=== PATIENT | male | born 1985 | race African-American/Black ===

== ENCOUNTER 2017-01-23 08:54 | Emergency (ER) | payer OTHER ==
[2017-01-23 09:11] VITALS: BMI 37.8
--- NOTE | 2017-01-23 09:58 | PDOC ---
History of Present Illness - General Chief Complaint: Lightheaded Stated Complaint: DIZZINESS, WEAKNESS Time Seen by Provider: 01/23/17 09:38 History Source: Patient - History of Present Illness Timing/Duration: other (this am) Associated Symptoms: denies: chest pain, cough, fever/chills, nausea/vomiting, shortness of breath, weakness Past History - Past Medical History Allergies/Adverse Reactions: Allergies Allergy/AdvReac Type Severity Reaction Status Date / Time No Known Allergies Allergy Verified 01/23/17 09:07 Home Medications: Ambulatory Orders Aripiprazole [Abilify] 20 mg PO DAILY 01/23/17 Psychiatric Problems: Yes (ANXIETY) Thyroid Disease: Yes - Immunization History Immunization Up to Date: Yes - Psycho/Social/Smoking Cessation Hx Suicidal Ideation: No Smoking Status: No Smoking History: Never smoked Have you smoked in the past 12 months: No Number of Cigarettes Smoked Daily: 0 Information on smoking cessation initiated: No Hx Alcohol Use: No Drug/Substance Use Hx: No Review of Systems - Review of Systems Constitutional: No: Chills, Fever Respiratory: No: Shortness of Breath Cardiac (ROS): No: Chest Pain ABD/GI: No: Nausea, Vomiting Neurological: Yes: Dizziness. No: Headache, Numbness, Tingling, Weakness *Physical Exam - Vital Signs Last Vital Signs Temp Pulse Resp BP Pulse Ox 97.3 F L 70 16 130/85 97 01/23/17 09:08 01/23/17 09:08 01/23/17 09:08 01/23/17 09:08 01/23/17 09:08 - Physical Exam General Appearance: Yes: Appropriately Dressed. No: Apparent Distress HEENT: positive: Normal ENT Inspection, Normal Voice. negative: Scleral Icterus (R), Scleral Icterus (L) Neck: positive: Supple Respiratory/Chest: positive: Lungs Clear, Normal Breath Sounds. negative: Respiratory Distress Cardiovascular: positive: Regular Rate, S1, S2 Gastrointestinal/Abdominal: positive: Soft. negative: Tender Extremity: positive: Normal Inspection Integumentary: positive: Dry, Warm Neurologic: positive: Fully Oriented, Alert, Normal Mood/Affect, Other (odd affect) Heart Score/ECG Review - ECG Intrepretation Comment:: 01/23/17 10:49 1st degree AV block @ 64 BPM ED Treatment Course - LABORATORY CBC & Chemistry Diagram: 01/23/17 10:10 01/23/17 10:10 Medical Decision Making - Medical Decision Making 01/23/17 09:55 31 yo M, h/o hyperthyroid on methimazole, bipolar on abilify, presents with dizziness. Patient reports feeling lightheaded whenever he tries to lay down since this a.m. No vertigo, headache, nausea, vomiting, focal weakness, chest pain or shortness of breath. No history of similar episode as per patient See exam Dizziness this am of unclear etiology Stable and well lance w/ unremarkable exam -basic labs -anticipate discharge w/ pmd f/u 01/23/17 09:58 01/23/17 09:58 01/23/17 10:59 EKG and labs unremarkable. Pt asx at this time. Stable for discharge w/ PMD f/u as needed *DC/Admit/Observation/Transfer Diagnosis at time of Disposition: Dizziness - Discharge Dispostion Disposition: HOME Condition at time of disposition: Improved - Patient Instructions Printed Discharge Instructions: Dizziness, Nonvertigo Additional Instructions: Your EKG and labs are all normal. If dizziness recurs, please follow-up with Dr. Amaya
[2017-01-23 10:27] LABS: BASOPHIL 0.7 % (0-2.0); EOSINOPHIL 0.4 % (0-4.5); MCH 27.8 pg (25.7-33.7); MCHC 32.2 g/dl (32.0-35.9); MEAN CELL VOLUME 86.3 fl (80-96); NEUTROPHILS 66.6 % (42.8-82.8); PLATELET COUNT 140 K/MM3 (134-434); RDW 14.3 % (11.9-15.9); WHITE BLOOD COUNT 4.5 K/mm3 (4.0-10.0)
[2017-01-23 10:43] LABS: URINE APPEARANCE CLEAR; URINE BILIRUBIN NEGATIVE (NEGATIVE); URINE BLOOD NEGATIVE (NEGATIVE); URINE COLOR YELLOW; URINE GLUCOSE (UA) NEGATIVE (NEGATIVE); URINE KETONE NEGATIVE (NEGATIVE); URINE LEUK ESTERASE NEGATIVE (NEGATIVE); URINE NITRITE NEGATIVE (NEGATIVE); URINE PROTEIN NEGATIVE (NEGATIVE)
[2017-01-23 10:48] LABS: ALBUMIN 3.4 g/dl (3.4-5.0); ANION GAP 5 (8-16); CALCIUM 8.7 mg/dL (8.5-10.1); CO2 29 mmol/L (21-32); GLUCOSE,RANDOM 113 mg/dL (74-106)
[2017-01-23 10:55] LABS: ALK PHOS 89 U/L (45-117); BILIRUBIN,TOTAL 0.3 mg/dL (0.2-1.0); CPK 266 IU/L (39-308); CREATININE 0.9 mg/dL (0.7-1.3); SGOT/AST 30 U/L (15-37); SGPT/ALT 73 U/L (12-78); TOT PROT 7.3 g/dl (6.4-8.2); TROPONIN I < 0.02 ng/ml (0.00-0.05)
[2017-01-23 11:48] VITALS: BP 123/68; PULSE 72; TEMP 98.2
--- NOTE | 2017-01-23 13:10 | EKG ---
Test Reason : Blood Pressure : / mmHG Vent. Rate : 064 BPM Atrial Rate : 064 BPM P-R Int : 212 ms QRS Dur : 104 ms QT Int : 424 ms P-R-T Axes : 050 009 023 degrees QTc Int : 437 ms SINUS RHYTHM WITH 1ST DEGREE A-V BLOCK POSSIBLE LEFT ATRIAL ENLARGEMENT BORDERLINE ECG WHEN COMPARED WITH ECG OF 10-APR-2000 14:50, PREVIOUS ECG IS PRESENT Confirmed by STEFF MIKE MD ([id number]) on 01/23/2017 1:09:52 PM Referred By: Confirmed By:STEFF MIKE MD
== END 2017-01-23 11:48 | disposition home or self-care (01) ==
LOC: JERFT 08:54 → JER 08:54
DX: R42 Dizziness and giddiness (principal); E05.90 Thyrotoxicosis, unspecified without thyrotoxic crisis or storm; F31.9 Bipolar disorder, unspecified
CPT/HCPCS: 36415; 80053; 81003; 82553; 84443; 84484; 85025; 93005; 93010; 99283-25

== ENCOUNTER 2017-06-07 11:59 | Emergency (ER) | payer OTHER ==
[2017-06-07 12:09] VITALS: TEMP 98.5; BMI 38.7
[2017-06-07 13:28] LABS: URINE APPEARANCE CLEAR; URINE BILIRUBIN NEGATIVE (NEGATIVE); URINE BLOOD NEGATIVE (NEGATIVE); URINE COLOR LTYELLOW; URINE GLUCOSE (UA) NEGATIVE (NEGATIVE); URINE KETONE NEGATIVE (NEGATIVE); URINE LEUK ESTERASE NEGATIVE (NEGATIVE); URINE NITRITE NEGATIVE (NEGATIVE); URINE PROTEIN NEGATIVE (NEGATIVE); URINE UROBILINOGEN NEGATIVE mg/dL (0.2-1.0)
--- NOTE | 2017-06-07 14:02 | PDOC ---
History of Present Illness - General Chief Complaint: Pain Stated Complaint: GENITAL PAIN, LIGHTHEADED Time Seen by Provider: 06/07/17 12:16 History Source: Patient Exam Limitations: No Limitations - History of Present Illness Travel History: No Initial Comments: 06/07/17 14:16 31-year-old male presents to the ED with complaints of bilateral testicular pain worsened with sitting and dysuria for the past week. Patient also states has noted clear drainage from the tip of his penis after urinating and is concerned he may have an STD. Patient states has unprotected sex with one female who is known to have other male partners. Patient denies fever, chills or abdominal pain. Timing/Duration: reports: intermittent Quality: reports: moderate Abdominal Pain Onset Location: reports: other Alleviating Factors: improves with: None Past History - Travel Traveled outside of the country in the last 30 days: No - Past Medical History Allergies/Adverse Reactions: Allergies Allergy/AdvReac Type Severity Reaction Status Date / Time No Known Allergies Allergy Verified 06/07/17 12:09 Home Medications: Ambulatory Orders Aripiprazole [Abilify] 20 mg PO DAILY 01/23/17 COPD: No Psychiatric Problems: Yes (ANXIETY) Thyroid Disease: Yes - Immunization History Immunization Up to Date: Yes - Suicide/Smoking/Psychosocial Hx Smoking Status: No Smoking History: Never smoked Have you smoked in the past 12 months: No Number of Cigarettes Smoked Daily: 0 Hx Alcohol Use: No Drug/Substance Use Hx: No Patient Lives Alone: No Lives with/in: parents Review of Systems - Review of Systems Able to Perform ROS?: Yes Constitutional: No: Symptoms Reported HEENTM: No: Symptoms Reported Respiratory: No: Symptoms reported Cardiac (ROS): No: Symptoms Reported ABD/GI: No: Symptoms Reported : Yes: Dysuria, Discharge, Testicular Pain. No: Frequency, Flank Pain, Hematuria, Urgency Musculoskeletal: No: Symptoms Reported Integumentary: No: Symptoms Reported Neurological: No: Symptoms reported *Physical Exam - Vital Signs Last Vital Signs Temp Pulse Resp BP Pulse Ox 98.5 F 79 18 135/81 99 06/07/17 12:05 06/07/17 12:05 06/07/17 12:05 06/07/17 12:05 06/07/17 12:05 - Physical Exam General Appearance: Yes: Nourished, Appropriately Dressed. No: Apparent Distress HEENT: positive: EOMI, FAVIOLA, TMs Normal, Pharynx Normal Neck: positive: Supple Respiratory/Chest: positive: Lungs Clear, Normal Breath Sounds. negative: Respiratory Distress, Accessory Muscle Use Cardiovascular: positive: Regular Rhythm, Regular Rate. negative: Murmur Gastrointestinal/Abdominal: positive: Soft. negative: Tenderness Male Genitalia: positive: normal genitalia. negative: discharge, testicular tenderness, testicular mass, epididymus tender Musculoskeletal: negative: CVA Tenderness Integumentary: positive: Normal Color, Warm, Moist Neurologic: positive: Normal Mood/Affect, Motor Strength 09/13 ED Treatment Course - RADIOLOGY Radiology Studies Ordered: Category Date Time Status SCROTUM AND CONTENTS US [US] Stat Ultrasound 06/07/17 12:49 Ordered Medical Decision Making - Medical Decision Making 06/07/17 14:38 Patient with complaints of dysuria, testicular pain, and clear discharge from penis intermittently for the past week. Patient also had no reproducible pain or abnormal acute findings. Patient had no discharge upon penile expression. Patient was ordered a GC chlamydia, HIV syphilis and testicular ultrasound. Based on patient's sexual history. patient will be treated for gonorrhea and chlamydia 06/07/17 15:15 Laboratory Tests 06/07/17 13:30 HIV 1&2 Antibody Screen Negative HIV P24 Antigen Negative 06/07/17 15:18 Laboratory Tests 06/07/17 13:15 Urine Ketones Negative Urine Nitrite Negative Ur Leukocyte Esterase Negative Ultrasound shows small right sided hydrocele, otherwise normal testicular sonogram with no evidence of torsion or acute pathology. Patient was treated for gonorrhea and chlamydia and will be discharged home with recommendations to abstain from sexual intercourse and to notify his partner. *DC/Admit/Observation/Transfer Diagnosis at time of Disposition: Dysuria - Discharge Dispostion Disposition: HOME Condition at time of disposition: Good - Referrals - Patient Instructions Printed Discharge Instructions: Facts About Sexually Transmitted Infections Additional Instructions: Please avoid sexual intercourse for one week and notify your partner today's visit. - Post Discharge Activity
[2017-06-07] MEDS ORDERED: AZITHROMYCIN 1 GM PACKET PO ONE (14:16)
[2017-06-07] MEDS ORDERED: AZITHROMYCIN 250 MG TABLET ONE (14:53)
[2017-06-07] MEDS ORDERED: cefTRIAXone SODIUM 1 GM VIAL ONE (14:53)
--- NOTE | 2017-06-07 15:37 | PDOC ---
*Physical Exam - Vital Signs Last Vital Signs Temp Pulse Resp BP Pulse Ox 98.5 F 79 18 135/81 99 06/07/17 12:05 06/07/17 12:05 06/07/17 12:05 06/07/17 12:05 06/07/17 12:05 ED Treatment Course - ADDITIONAL ORDERS Additional order review: Laboratory Results 06/07/17 13:15 Urine Color Ltyellow Urine Appearance Clear Urine pH 8.0 D Ur Specific [place] 1.013 Urine Protein Negative Urine Glucose (UA) Negative Urine Ketones Negative Urine Blood Negative Urine Nitrite Negative Urine Bilirubin Negative Urine Urobilinogen Negative Ur Leukocyte Esterase Negative Medical Decision Making - Medical Decision Making 06/07/17 15:37 Pt seen by the Advanced Practice Provider under my direct supervision Ancillary studies reviewed I agree with plan as outlined by the Advanced Practice Provider *DC/Admit/Observation/Transfer Diagnosis at time of Disposition: Dysuria - Discharge Dispostion Disposition: HOME Condition at time of disposition: Good - Referrals Referrals: Jose F Amaya MD [Primary Care Provider] - - Patient Instructions Printed Discharge Instructions: Facts About Sexually Transmitted Infections Additional Instructions: Please avoid sexual intercourse for one week and notify your partner about today 's visit. - Post Discharge Activity
[2017-06-07 15:54] VITALS: BP 129/97; PULSE 83
== END 2017-06-07 15:54 | disposition home or self-care (01) ==
LOC: JER 11:59
DX: R30.0 Dysuria (principal); N43.2 Other hydrocele
CPT/HCPCS: 36415; 76870-TC; 81003; 86593; 87086; 87389; 87491; 87591; 96372; 99282-25

== ENCOUNTER 2018-11-06 11:13 | Emergency (ER) | payer OTHER ==
[2018-11-06 11:20] VITALS: BP 151/88; PULSE 78; TEMP 97.8; BMI 41.2
[2018-11-06] MEDS ORDERED: CYCLOBENZAPRINE HCL 10 MG TABLET (FP) PO ONE (12:03)
[2018-11-06] MEDS ORDERED: ACETAMINOPHEN 325 MG TABLET (FP) PO ONE (12:03)
[2018-11-06] MEDS ORDERED: ACETAMINOPHEN 325 MG TABLET (FP) ONE (12:07)
[2018-11-06] MEDS ORDERED: CYCLOBENZAPRINE HCL 10 MG TABLET (FP) ONE (12:07)
--- NOTE | 2018-11-06 12:08 | PDOC ---
History of Present Illness - General Chief Complaint: Back Pain Stated Complaint: BACK PAIN Time Seen by Provider: 11/06/18 11:40 History Source: Patient Exam Limitations: No Limitations - History of Present Illness Initial Comments: 11/06/18 12:03 33y M hx of anxiety presents with complaint of lower back pain. Patient states the pain started on Friday when he was moving shopping carts, the pain resolved on Friday however on he was picking up bag of recycling glass and the pain started again. The pain is worse in the lower back and does not radiate to the left or right. The pain is worse when he is sitting improved when he standing or lying flat on his back, there is no associated fever, chills, numbness, tingling, weakness, urinary or bowel incontinence. Patient's is overweight however does not have any frequent back problems. No falls or other injuries The patient took Motrin last night and Aleve this morning without significant relief. Constitutional - no reported Fever, Chills, Abd/GI: no reported abd pain, nausea, vomiting, bowel incontinence : no reported urinary incontinence Musculskelatal -+back pain, no reported joint swelling skin - no reported bruising, erythema, rash neurological: no reported headache, numbness, focal weakness, tingling, ataxia, hematologic: no reported easy bruising, easy bleeding GENERAL: The patient is awake, alert, and fully oriented, Nontoxic - in no acute distress. HEAD: Normocephalic, atraumatic. BACK: Mild tenderness in the lower back approx L4/5 in paraspinal muscles. No induration, erythema, bogginess, rash. EXTREMITIES: Normal range of motion, no edema. NEUROLOGICAL: No facial assymetry, Normal speech, normal gait, symmetric plantar extension/flexion, symmetric sensation in b/l LE PSYCH: Normal mood, normal affect. SKIN: Warm, Dry, normal turgor, Suspect muscle spasm, will treat with Flexeril, Motrin, Tylenol, rest no red flags or clnical signs of cauda equina bee dc with pmd fu return precautions were discussed Past History - Past Medical History Allergies/Adverse Reactions: Allergies Allergy/AdvReac Type Severity Reaction Status Date / Time No Known Allergies Allergy Verified 11/06/18 11:15 Home Medications: Ambulatory Orders Aripiprazole [Abilify] 20 mg PO DAILY 01/23/17 COPD: No Psychiatric Problems: Yes (ANXIETY) Thyroid Disease: Yes - Immunization History Immunization Up to Date: Yes - Suicide/Smoking/Psychosocial Hx Smoking Status: No Smoking History: Never smoked Have you smoked in the past 12 months: No Number of Cigarettes Smoked Daily: 0 Information on smoking cessation initiated: No Hx Alcohol Use: No Drug/Substance Use Hx: No *Physical Exam - Vital Signs Last Vital Signs Temp Pulse Resp BP Pulse Ox 97.8 F 78 18 151/88 98 11/06/18 11:11/06/18 11:17 11/06/18 11:11/06/18 11:11/06/18 11:17 *DC/Admit/Observation/Transfer Diagnosis at time of Disposition: Lower back pain Qualifiers: Chronicity: acute Back pain laterality: bilateral Sciatica presence: without sciatica Qualified Code(s): M54.5 - Low back pain - Discharge Dispostion Disposition: HOME Condition at time of disposition: Improved Decision to Admit order: No - Referrals Referrals: Jose F Amaya MD [Primary Care Provider] - - Patient Instructions Printed Discharge Instructions: DI for Low Back Pain Additional Instructions: Return to the emergency department immediately with ANY new, persistent or worsening symptoms including numbness, tingling, weakness, fevers or any other concerns. Take ibuprofen (400mg)/tylenol(650mg) every 6 hours for 2 days. Take the flexeril 10mg twice daily if you still have pain/discomfort. Apply heat to your sore muscles. Use a lifting belt for safety. You MUST call and follow up with your doctor tomorrow for further evaluation of your symptoms. Your emergency department visit is not complete without a followup with your doctor for reevaluation.. Results were discussed with you. Please make sure your doctor reviews the results of your emergency evaluation. Print Language: [place] CITIZEN - Post Discharge Activity Forms/Work/School Notes: Back to Work
== END 2018-11-06 12:16 | disposition home or self-care (01) ==
LOC: JERFT 11:13
DX: M54.5 Low back pain (principal); X50.0XXA Overexertion from strenuous movement or load, initial encounter; Y93.89 Activity, other specified; Y92.512 Supermarket, store or market as the place of occurrence of the external cause; Y99.0 Civilian activity done for income or pay
CPT/HCPCS: 99282-25

== ENCOUNTER 2019-02-06 12:10 | Emergency (ER) | payer OTHER ==
[2019-02-06 12:19] VITALS: BP 117/65; PULSE 79; TEMP 98.4; BMI 41.2
--- NOTE | 2019-02-06 13:17 | PDOC ---
History of Present Illness - General Chief Complaint: Cold Symptoms Stated Complaint: COLD SYMPTOMS Time Seen by Provider: 02/06/19 12:43 History Source: Patient (sorethroat and cough X 3 days) Exam Limitations: No Limitations - History of Present Illness Associated Symptoms: reports: cough, nasal congestion, sore throat. denies: earache, facial pain, fever/chills, headache, muscle aches, nasal drainage, shortness of breath, wheezing Past History - Travel Traveled outside of the country in the last 30 days: No - Past Medical History Allergies/Adverse Reactions: Allergies Allergy/AdvReac Type Severity Reaction Status Date / Time No Known Allergies Allergy Verified 11/06/18 11:15 Home Medications: Ambulatory Orders Aripiprazole [Abilify] 20 mg PO DAILY 01/23/17 Cyclobenzaprine HCl [Flexeril 10 mg] 10 mg PO BID PRN #20 tablet 11/06/18 Benzonatate [Tessalon Pearls -] 100 mg PO TID #21 capsule 02/06/19 Fluticasone Prop 0.05% Nasal [Flonase -] 1 - 2 spray NS BID #1 spray.pump COPD: No Psychiatric Problems: Yes (ANXIETY) Thyroid Disease: Yes - Immunization History Immunization Up to Date: Yes - Psycho Social/Smoking Cessation Hx Smoking Status: No Smoking History: Never smoked Have you smoked in the past 12 months: No Number of Cigarettes Smoked Daily: 0 Information on smoking cessation initiated: No Hx Alcohol Use: No Drug/Substance Use Hx: No Respiratory Specific PMHX - Complaint Specific PMHX Angina: No Review of Systems - Review of Systems Constitutional: No: Chills, Fever HEENTM: Yes: Nose Congestion, Throat Pain. No: Tinnitus, Hearing Loss, Throat Swelling Respiratory: Yes: Cough, Productive cough. No: Shortness of Breath, Wheezing Cardiac (ROS): No: Chest Pain ABD/GI: No: Abdominal Distended, Abd. Pain w/ defecation, Diarrhea, Nausea, Vomiting Musculoskeletal: No: Back Pain, Gout, Joint Pain, Muscle Pain Neurological: No: Headache, Dizziness *Physical Exam - Vital Signs Last Vital Signs Temp Pulse Resp BP Pulse Ox 98.4 F 79 20 117/65 96 02/06/19 12:17 02/06/19 12:17 02/06/19 12:02/06/19 12:17 02/06/19 12:17 - Physical Exam General Appearance: Yes: Nourished HEENT: positive: EOMI, FAVIOLA, TMs Normal, Nasal Congestion, Rhinorrhea Respiratory/Chest: positive: Lungs Clear, Normal Breath Sounds Cardiovascular: positive: Regular Rhythm, Regular Rate, S1, S2 Gastrointestinal/Abdominal: positive: Soft Extremity: positive: Normal Capillary Refill Integumentary: positive: Normal Color 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 intact, Fully Oriented, Alert, Normal Mood/ Affect, Normal Response, Motor Strength 09/13 Discharge - Discharge Information Problems reviewed: Yes Clinical Impression/Diagnosis: URI, acute Condition: Worsened Disposition: HOME - Admission No - Additional Discharge Information Prescriptions: Benzonatate [Tessalon Pearls -] 100 mg PO TID #21 capsule Fluticasone Prop 0.05% Nasal [Flonase -] 1 - 2 spray NS BID #1 spray.pump Prescription Drug Monitoring Program (I-STOP) results: I-STOP not reviewed - Follow up/Referral Referrals: Jose F Amaya MD [Primary Care Provider] - - Patient Discharge Instructions Patient Printed Discharge Instructions: DI for Common Cold Additional Instructions: Your strep was negative today you have a cold, please increase fluids and rest take medication as prescribed follow up with our Primary care doctor Return to the ER if worsening symptoms occurs. - Post Discharge Activity
== END 2019-02-06 14:13 | disposition home or self-care (01) ==
LOC: JERFT 12:10
DX: J06.9 Acute upper respiratory infection, unspecified (principal); E07.9 Disorder of thyroid, unspecified; F41.9 Anxiety disorder, unspecified
CPT/HCPCS: 87070; 87880; 99281-25

== ENCOUNTER 2020-06-03 13:43 | Emergency (ER) | payer OTHER ==
[2020-06-03 13:56] VITALS: BP 135/79; PULSE 75; TEMP 98.6; BMI 39.9
== END 2020-06-03 14:45 | disposition home or self-care (01) ==
LOC: JER 13:43
DX: J02.9 Acute pharyngitis, unspecified (principal)
CPT/HCPCS: 87070; 87880; 99283-25

== ENCOUNTER 2023-08-15 10:49 | Emergency (ER) | payer OTHER ==
[2023-08-15 11:05] VITALS: BP 152/87; PULSE 86; RESP 18; TEMP 98; BMI 43.7
[2023-08-15 12:34] LABS: URINE APPEARANCE CLEAR; URINE BILIRUBIN NEGATIVE (NEGATIVE); URINE COLOR YELLOW; URINE GLUCOSE (UA) NEGATIVE (NEGATIVE); URINE KETONE NEGATIVE (NEGATIVE); URINE LEUK ESTERASE NEGATIVE (NEGATIVE); URINE NITRITE NEGATIVE (NEGATIVE); URINE PROTEIN NEGATIVE (NEGATIVE)
== END 2023-08-15 19:00 | disposition home or self-care (01) ==
LOC: JERFT 10:49
DX: M54.50 Low back pain, unspecified (principal)
CPT/HCPCS: 81003; 99283-25